=== PATIENT | female | born 1955 | race African-American/Black ===

== ENCOUNTER 2017-06-28 22:31 | Inpatient (IN) | payer MEDICARE, MEDICAID ==
[~2017-06-28] VITALS: Ht 167.6 cm; Wt 73.9 kg
[~2017-06-28 22:31] MED LIST: FURO20TA4 PO; GABA-529 PO; LEVO25TA7 PO; SITA50TA3 PO; TRAM50TA3 PO; TRAZ-129 PO
[2017-06-28] MEDS ORDERED: SODIUM CHLORIDE 0.9% 1,000 ML IV ONE (22:54)
[2017-06-28] MEDS ORDERED: LEVOFLOXACIN 750MG PREMIX 150 ML IV ONE (23:00)
[2017-06-28] MEDS ORDERED: VANCOMYCIN 1 G PREMIX 200 ML IV ONE (23:00)
[2017-06-28 23:43] LABS: BASOPHILS % 0.8 % (0.0-2.0); EOSINOPHILS % 0.1 % (0.0-5.0); HEMATOCRIT. 33.3 % (36.0-48.0); HEMOGLOBIN. 10.7 g/dL (12.0-16.0); LYMPHOCYTES % 12.6 % (20.0-50.0); MEAN CORPUSCULAR HEMOGLOBIN 25.9 pg (28.0-32.0); MEAN CORPUSCULAR VOLUME 80.5 fL (81.0-99.0); MEAN PLATELET VOLUME 9.4 fl (7.4-10.4); MONOCYTES % 5.8 % (2.0-8.0); NEUTROPHILS % 80.7 % (40.0-76.0); RED BLOOD CELL COUNT 4.14 mill/uL (4.2-5.4); RED CELL DISTRIBUTION WIDTH 15.1 % (11.6-14.6)
[2017-06-28 23:50] LABS: CHLORIDE 106 mEq/L (98-107)
[2017-06-28 23:54] LABS: AMMONIA 10 uMol/L (<32)
[2017-06-28 23:57] LABS: ETHANOL BLOOD < 10 mg/dL
[2017-06-28 23:58] LABS: INR 1.1; PROTHROMBIN TIME 11.7 sec (9.4-11.6)
[2017-06-29] VITALS (8 sets, daily range): BP systolic 98–123; BP diastolic 54–73
[2017-06-29 00:01] LABS: CREATINE KINASE 122 IU/L (26-192)
[2017-06-29 00:14] LABS: BG BASE EXCESS 0.6 mmol/L (-2.0-2.0); BG CARBOXYHEMOGLOBIN 0.8 % (0.5-1.5); BG DEOXYHEMOGLOBIN 4.8 % (0.0-5.0); BG FRACTION INSPIRED OXYGEN 21; BG HCO3 ACT 25.2 mmol/L (22.0-26.0); BG METHEMOGLOBIN 0.3 % (0.0-1.5); BG OXYGEN SATURATION 95.1 % (92.0-98.5); BG OXYHEMOGLOBIN 94.1 % (94.0-97.0); BG PCO2 40.3 mmHg (35.0-45.0); BG PH 7.414 (7.350-7.450); BG PO2 76.9 mmHg (75.0-100.0); BG SAMPLE SITE LEFT RADIAL; BG TOTAL HEMOGLOBIN 11.2 g/dL (12.0-18.0); BG VENT MODE ROOM AIR
[2017-06-29 00:37] LABS: PLATELET 213 x1000/uL (130-400)
[2017-06-29 00:56] LABS: CLARITY URINE CLEAR (CLEAR); COLOR URINE YELLOW (YELLOW); KETONES URINE TRACE (NEGATIVE); LEUKOCYTE ESTERASE URINE NEGATIVE (NEGATIVE); NITRITE URINE NEGATIVE (NEGATIVE); OCCULT BLOOD URINE NEGATIVE (NEGATIVE); PH URINE 6.5 (4.5-8.0); PROTEIN URINE TRACE (NEGATIVE); SPECIFIC GRAVITY URINE 1.016 (1.005-1.030); UROBILINOGEN URINE 0.2 E.U./dL (0.2-1.0)
[2017-06-29 01:07] LABS: *AMPHETAMINES SCREEN URINE NEGATIVE (NEGATIVE); *BARBITURATES SCREEN URINE NEGATIVE (NEGATIVE); *BENZODIAZEPINES SCREEN URINE NEGATIVE (NEGATIVE)
[2017-06-29 01:08] LABS: *COCAINE SCREEN URINE NEGATIVE (NEGATIVE); CANNABINOID URINE SCREEN NEGATIVE (NEGATIVE); METHADONE URINE SCREEN NEGATIVE (NEGATIVE); OPIATES URINE SCREEN PRESUMTIVE POSITIVE (NEGATIVE); PHENCYCLIDINE URINE SCREEN NEGATIVE (NEGATIVE)
[2017-06-29] MEDS ORDERED: CLONIDINE 0.1MG TABLET GT PRN (09:00)
[2017-06-29] MEDS ORDERED: ACETAMINOPHEN 325MG TABLET GT PRN (09:00)
[2017-06-29] MEDS: ENOXAPARIN 40MG/0.4ML SYR SUBCUT SCH (09:54)
[2017-06-29] MEDS: LEVOTHYROXINE SODIUM 25MCG TABLET PO SCH (09:54)
[2017-06-29] MEDS: DOCUSATE SODIUM 100MG CAPSULE GT SCH ×2 (09:54→17:59)
[2017-06-29 11:35] LABS: TOTAL IRON BINDING CAPACITY 214 ug/dL (250-450)
[2017-06-29] MEDS: BLOOD SUGAR DIAGNOSTIC STRIP TEST SCH ×3 (11:59→22:11)
[2017-06-29] MEDS ORDERED: DEXTROSE 50% WATER 50ML SYRINGE IV PRN ×2 (12:00→20:00)
[2017-06-29] MEDS: INSULIN LISPRO 100 UNITS/ML SUBCUT SCH ×3 (12:20→22:00)
[2017-06-29] MEDS: IPRATROPIUM/ALBUTEROL 0.5-3(2.5)MG/3ML NEB HHN SCH ×3 (12:55→20:00)
[2017-06-29 16:55] LABS: CREATINE KINASE MB FRACTION 0.8 ng/mL (0.5-3.6)
[2017-06-29 17:00] LABS: VITAMIN B12 SERUM 447 pg/mL (211-911)
[2017-06-29 18:03] LABS: CLARITY URINE CLOUDY (CLEAR); COLOR URINE YELLOW (YELLOW); KETONES URINE NEGATIVE (NEGATIVE); LEUKOCYTE ESTERASE URINE TRACE (NEGATIVE); NITRITE URINE NEGATIVE (NEGATIVE); OCCULT BLOOD URINE TRACE (NEGATIVE); PROTEIN URINE TRACE (NEGATIVE); SPECIFIC GRAVITY URINE 1.015 (1.005-1.030); UROBILINOGEN URINE 0.2 E.U./dL (0.2-1.0)
[2017-06-29 18:50] LABS: *AMPHETAMINES SCREEN URINE NEGATIVE (NEGATIVE); *BARBITURATES SCREEN URINE NEGATIVE (NEGATIVE)
[2017-06-29 18:51] LABS: *BENZODIAZEPINES SCREEN URINE NEGATIVE (NEGATIVE); *COCAINE SCREEN URINE NEGATIVE (NEGATIVE); CANNABINOID URINE SCREEN NEGATIVE (NEGATIVE); METHADONE URINE SCREEN NEGATIVE (NEGATIVE); OPIATES URINE SCREEN PRESUMTIVE POSITIVE (NEGATIVE); PHENCYCLIDINE URINE SCREEN NEGATIVE (NEGATIVE)
[2017-06-29] MEDS: TRAZODONE HCL 50MG TABLET PO SCH (20:38)
[2017-06-29] MEDS ORDERED: ACETAMINOPHEN 325MG TABLET PO PRN (21:00)
[2017-06-29] MEDS: ZOLPIDEM TARTRATE 5MG TABLET PO PRN (22:08)
[2017-06-29] MEDS: SILVER SULFADIAZINE 1% CREAM 25GM TOP SCH (22:37)
[2017-06-29] MEDS: PIPERACILLIN/TAZ 3.375G PREMIX 50 ML IV SCH (23:00)
[2017-06-30] VITALS (13 sets, daily range): BP systolic 94–161; BP diastolic 38–88
[2017-06-30 00:11] LABS: CREATINE KINASE MB FRACTION 0.9 ng/mL (0.5-3.6)
[2017-06-30] MEDS: HYDROMORPHONE HCL/PF 2MG/ML CPJ IV PRN ×2 (02:41→22:26)
[2017-06-30] MEDS: IPRATROPIUM/ALBUTEROL 0.5-3(2.5)MG/3ML NEB HHN SCH ×6 (05:05→20:47)
[2017-06-30] MEDS: PIPERACILLIN/TAZ 3.375G PREMIX 50 ML IV SCH ×4 (06:00→22:26)
[2017-06-30] MEDS: INSULIN LISPRO 100 UNITS/ML SUBCUT SCH ×3 (06:00→21:28)
[2017-06-30] MEDS: BLOOD SUGAR DIAGNOSTIC STRIP TEST SCH ×3 (06:32→21:28)
[2017-06-30] MEDS: LEVOTHYROXINE SODIUM 25MCG TABLET PO SCH (06:56)
[2017-06-30 07:08] LABS: BASOPHILS % 0.2 % (0.0-2.0); EOSINOPHILS % 0.5 % (0.0-5.0); HEMATOCRIT. 34.1 % (36.0-48.0); LYMPHOCYTES % 18.6 % (20.0-50.0); MEAN CORPUSCULAR HEMOGLOBIN 25.9 pg (28.0-32.0); MEAN CORPUSCULAR VOLUME 80.6 fL (81.0-99.0); MEAN PLATELET VOLUME 8.8 fl (7.4-10.4); MONOCYTES % 7.5 % (2.0-8.0); NEUTROPHILS % 73.2 % (40.0-76.0); PLATELET 206 x1000/uL (130-400); RED BLOOD CELL COUNT 4.23 mill/uL (4.2-5.4); RED CELL DISTRIBUTION WIDTH 15.5 % (11.6-14.6)
[2017-06-30 07:51] LABS: CHLORIDE 110 mEq/L (98-107)
[2017-06-30] MEDS: SILVER SULFADIAZINE 1% CREAM 25GM TOP SCH ×2 (09:26→20:17)
[2017-06-30] MEDS: ENOXAPARIN 40MG/0.4ML SYR SUBCUT SCH (09:26)
[2017-06-30] MEDS: DOCUSATE SODIUM 100MG CAPSULE GT SCH ×2 (09:26→18:03)
[2017-06-30] MEDS: TRAZODONE HCL 50MG TABLET PO SCH (20:14)
[2017-06-30] MEDS: ZOLPIDEM TARTRATE 5MG TABLET PO PRN (20:14)
[2017-07-01] VITALS (11 sets, daily range): BP systolic 101–143; BP diastolic 46–76
[2017-07-01] MEDS: IPRATROPIUM/ALBUTEROL 0.5-3(2.5)MG/3ML NEB HHN SCH ×6 (04:00→21:36)
[2017-07-01] MEDS: INSULIN LISPRO 100 UNITS/ML SUBCUT SCH ×3 (05:48→22:00)
[2017-07-01] MEDS: BLOOD SUGAR DIAGNOSTIC STRIP TEST SCH ×3 (05:48→22:00)
[2017-07-01] MEDS: LEVOTHYROXINE SODIUM 25MCG TABLET PO SCH ×2 (05:53→06:05)
[2017-07-01] MEDS: PIPERACILLIN/TAZ 3.375G PREMIX 50 ML IV SCH ×4 (05:53→23:40)
[2017-07-01 07:06] LABS: BASOPHILS % 0.2 % (0.0-2.0); EOSINOPHILS % 1.3 % (0.0-5.0); LYMPHOCYTES % 27.7 % (20.0-50.0); MEAN CORPUSCULAR VOLUME 80.2 fL (81.0-99.0); MEAN PLATELET VOLUME 9.1 fl (7.4-10.4); MONOCYTES % 10.5 % (2.0-8.0); NEUTROPHILS % 60.3 % (40.0-76.0); PLATELET 216 x1000/uL (130-400); RED BLOOD CELL COUNT 4.24 mill/uL (4.2-5.4); RED CELL DISTRIBUTION WIDTH 15.5 % (11.6-14.6)
[2017-07-01 07:17] LABS: CHLORIDE 109 mEq/L (98-107)
[2017-07-01] MEDS: DOCUSATE SODIUM 100MG CAPSULE GT SCH ×2 (09:00→16:17)
[2017-07-01] MEDS ORDERED: DIATR MEGLU/DIATRIZOATE SOLN 30ML ONE (11:19)
[2017-07-01] MEDS ORDERED: LIDOCAINE HCL/PF 1% 10 MG/ML 5ML VIAL ONE (11:20)
[2017-07-01] MEDS ORDERED: SODIUM BICARBONATE 4% (2.4MEQ) 5ML VIAL IV ONE (11:21)
[2017-07-01] MEDS ORDERED: LIDOCAINE HCL 2% JELLY 5ML ONE (11:21)
[2017-07-01] MEDS: MAGNESIUM/ALUMINUM HYDROXIDE/SIMETHICONE 30ML UDC PO PRN ×2 (13:09→18:08)
[2017-07-01] MEDS: ENOXAPARIN 40MG/0.4ML SYR SUBCUT SCH (14:53)
[2017-07-01] MEDS: SILVER SULFADIAZINE 1% CREAM 25GM TOP SCH ×2 (14:54→20:49)
[2017-07-01] MEDS: HYDROMORPHONE HCL/PF 2MG/ML CPJ IV PRN (16:29)
[2017-07-01] MEDS: ONDANSETRON HCL 4MG/2ML VIAL IV PRN ×2 (18:32→23:40)
[2017-07-01] MEDS: TRAZODONE HCL 50MG TABLET PO SCH (20:49)
[2017-07-02] VITALS (8 sets, daily range): BP systolic 95–115; BP diastolic 51–66
[2017-07-02] MEDS: HYDROMORPHONE HCL/PF 2MG/ML CPJ IV PRN (00:11)
[2017-07-02] MEDS: IPRATROPIUM/ALBUTEROL 0.5-3(2.5)MG/3ML NEB HHN SCH ×3 (00:52→11:22)
[2017-07-02] MEDS: ZOLPIDEM TARTRATE 5MG TABLET PO PRN (01:47)
[2017-07-02] MEDS: PIPERACILLIN/TAZ 3.375G PREMIX 50 ML IV SCH ×2 (05:39→11:11)
[2017-07-02] MEDS: INSULIN LISPRO 100 UNITS/ML SUBCUT SCH (06:00)
[2017-07-02] MEDS: BLOOD SUGAR DIAGNOSTIC STRIP TEST SCH (06:00)
[2017-07-02] MEDS: LEVOTHYROXINE SODIUM 25MCG TABLET PO SCH (06:09)
[2017-07-02] MEDS: ENOXAPARIN 40MG/0.4ML SYR SUBCUT SCH (08:15)
[2017-07-02] MEDS: DOCUSATE SODIUM 100MG CAPSULE GT SCH (08:15)
[2017-07-02] MEDS: SILVER SULFADIAZINE 1% CREAM 25GM TOP SCH (08:17)
[2017-07-02] MEDS: ONDANSETRON HCL 4MG/2ML VIAL IV PRN (13:06)
== END 2017-07-02 13:05 | disposition home health service (06) | DRG 871 ==
LOC: ER 22:31 → 3WST 06-29 04:00 → ENRESERV 06-29 04:11 → EDBEDREQ 06-29 04:26 → 3WST 06-29 07:43
PROVIDERS: ADMIT Internal Medicine Geriatric Medicine; ATTEND Internal Medicine Geriatric Medicine
DX: A41.9 Sepsis, unspecified organism (principal); G92 Toxic encephalopathy; E44.0 Moderate protein-calorie malnutrition; J18.9 Pneumonia, unspecified organism; E11.42 Type 2 diabetes mellitus with diabetic polyneuropathy; E11.69 Type 2 diabetes mellitus with other specified complication; D50.9 Iron deficiency anemia, unspecified; F15.10 Other stimulant abuse, uncomplicated; G89.29 Other chronic pain; B95.2 Enterococcus as the cause of diseases classified elsewhere; Z16.21 Resistance to vancomycin; E03.9 Hypothyroidism, unspecified; I10 Essential (primary) hypertension; N20.0 Calculus of kidney; Z91.81 History of falling; Z68.26 Body mass index [BMI] 26.0-26.9, adult; Z79.899 Other long term (current) drug therapy
CPT/HCPCS: 36415; 36598; 36600; 49450; 51702; 70450; 71045; 74176; 80048; 80053; 80305; 81003; 82140; 82270; 82375; 82550; 82553; 82607; 82805; 82962; 83540; 83550; 83605; 83690; 83721; 83880; 84443; 84484; 85025; 85610; 86850; 86900; 87040; 87086; 87804; 93005; 93306; 93970; 94640; 96365; 96366; 96367; 99291; G0482; J1170; J1650; J1956; J2405; J2543; J3370; J3490; J7030; J7040; J7050; J7620; Q9963

== ENCOUNTER 2019-02-24 14:37 | Inpatient (IN) | payer MEDICARE, MEDICAID ==
[~2019-02-24] VITALS: Ht 160 cm; Wt 64.0 kg
[~2019-02-24 14:37] MED LIST changes: -TRAZ-129 PO; +TRAZ-251 PO
[2019-02-24] MEDS ORDERED: ONDANSETRON HCL 4MG/2ML INJ IV STA (15:02)
[2019-02-24] MEDS ORDERED: SODIUM CHLORIDE 0.9% 1,000 ML IV ONE (15:02)
[2019-02-24] MEDS ORDERED: MORPHINE SULFATE 4 MG/ML CPJ (NOT FOR IM USE) IV STA (15:02)
[2019-02-24 16:04] LABS: CHLORIDE 108 mEq/L (98-107)
[2019-02-24 16:06] LABS: INR 1.1; PROTHROMBIN TIME 11.2 sec (9.6-11.0)
[2019-02-24 16:08] LABS: ETHANOL BLOOD < 10 mg/dL
[2019-02-24 16:24] LABS: BASOPHILS % 0.2 % (0.0-2.0); HEMATOCRIT. 42.9 % (36.0-48.0); HEMOGLOBIN. 13.7 g/dL (12.0-16.0); LYMPHOCYTES % 7.4 % (20.0-50.0); MEAN CORPUSCULAR HEMOGLOBIN 26.2 pg (28.0-32.0); MEAN CORPUSCULAR VOLUME 82.2 fL (81.0-99.0); MEAN PLATELET VOLUME 9.1 fl (7.4-10.4); MONOCYTES % 3.9 % (2.0-8.0); NEUTROPHILS % 88.5 % (40.0-76.0); PLATELET 329 x1000/uL (130-400); RED BLOOD CELL COUNT 5.21 mill/uL (4.2-5.4); RED CELL DISTRIBUTION WIDTH 15.9 % (11.6-14.6)
[2019-02-24] MEDS ORDERED: METRONIDAZOLE 500 MG PREMIX 100 ML IV ONE (16:30)
[2019-02-24] MEDS ORDERED: CEFTRIAXONE 1 G PREMIX 50 ML IV ONE (16:30)
[2019-02-24] MEDS ORDERED: MORPHINE SULFATE 4 MG/ML CPJ (NOT FOR IM USE) IV NR (20:15)
[2019-02-24] MEDS ORDERED: ONDANSETRON HCL 4MG/2ML INJ IV NR (20:15)
[2019-02-24] MEDS ORDERED: ACETAMINOPHEN 325MG TABLET PO PRN (21:45)
[2019-02-24] MEDS ORDERED: DOCUSATE SODIUM 100MG CAPSULE PO PRN (21:45)
[2019-02-24] MEDS ORDERED: CLONIDINE 0.1MG TABLET PO PRN (21:45)
[2019-02-24] MEDS ORDERED: IPRATROPIUM/ALBUTEROL 0.5-3(2.5)MG/3ML NEB NEB PRN (21:45)
[2019-02-24] MEDS ORDERED: MAGNESIUM/ALUMINUM HYDROXIDE/SIMETHICONE 30ML UDC PO PRN (21:45)
[2019-02-24 23:21] LABS: CLARITY URINE CLEAR (CLEAR); COLOR URINE YELLOW (YELLOW); KETONES URINE 4+ (NEGATIVE); LEUKOCYTE ESTERASE URINE NEGATIVE (NEGATIVE); NITRITE URINE NEGATIVE (NEGATIVE); OCCULT BLOOD URINE NEGATIVE (NEGATIVE); PROTEIN URINE 1+ (NEGATIVE); UROBILINOGEN URINE 0.2 E.U./dL (0.2-1.0)
[2019-02-24 23:32] LABS: *AMPHETAMINES SCREEN URINE NEGATIVE (NEGATIVE); *BARBITURATES SCREEN URINE NEGATIVE (NEGATIVE); *BENZODIAZEPINES SCREEN URINE NEGATIVE (NEGATIVE); *COCAINE SCREEN URINE NEGATIVE (NEGATIVE)
[2019-02-24 23:33] LABS: CANNABINOID URINE SCREEN NEGATIVE (NEGATIVE); METHADONE URINE SCREEN NEGATIVE (NEGATIVE); OPIATES URINE SCREEN PRESUMTIVE POSITIVE (NEGATIVE); PHENCYCLIDINE URINE SCREEN NEGATIVE (NEGATIVE)
[2019-02-25 01:28] LABS: BG BASE EXCESS -9.1 mmol/L (-2.0-2.0); BG CARBOXYHEMOGLOBIN 0.3 % (0.5-1.5); BG DEOXYHEMOGLOBIN 2.8 % (0.0-5.0); BG FRACTION INSPIRED OXYGEN 21; BG METHEMOGLOBIN 0.2 % (0.0-1.5); BG OXYGEN SATURATION 97.2 % (92.0-98.5); BG OXYHEMOGLOBIN 96.7 % (94.0-97.0); BG PCO2 27.5 mmHg (35.0-45.0); BG PH 7.355 (7.350-7.450); BG PO2 105.3 mmHg (75.0-100.0); BG SAMPLE SITE RIGHT BRACHIAL; BG TOTAL HEMOGLOBIN 11.3 g/dL (12.0-18.0); BG VENT MODE ROOM AIR
[2019-02-25 01:33] LABS: CHLORIDE 114 mEq/L (98-107)
[2019-02-25 01:41] LABS: CREATINE KINASE 351 IU/L (26-192)
[2019-02-25 01:43] LABS: CREATINE KINASE MB FRACTION 3.5 ng/mL (0.5-3.6)
[2019-02-25] MEDS: SODIUM CHLORIDE 0.9% 1,000 ML IV SCH ×3 (03:30→16:18)
[2019-02-25] MEDS ORDERED: PIPERACILLIN/TAZ 3.375G PREMIX 50 ML IV NR (03:30)
[2019-02-25] MEDS ORDERED: MORPHINE SULFATE 4 MG/ML CPJ (NOT FOR IM USE) IV NR (05:15)
[2019-02-25 10:30] VITALS: BP 121/56
[2019-02-25 11:15] VITALS: BP 121/56
[2019-02-25 11:58] LABS: BASOPHILS % 0.6 % (0.0-2.0); EOSINOPHILS % 0.1 % (0.0-5.0); HEMATOCRIT. 39.2 % (36.0-48.0); HEMOGLOBIN. 12.1 g/dL (12.0-16.0); LYMPHOCYTES % 7.4 % (20.0-50.0); MEAN CORPUSCULAR HEMOGLOBIN 25.7 pg (28.0-32.0); MEAN CORPUSCULAR VOLUME 83.3 fL (81.0-99.0); MEAN PLATELET VOLUME 8.9 fl (7.4-10.4); MONOCYTES % 8.6 % (2.0-8.0); NEUTROPHILS % 83.3 % (40.0-76.0); PLATELET 221 x1000/uL (130-400); RED CELL DISTRIBUTION WIDTH 15.9 % (11.6-14.6)
[2019-02-25 12:22] LABS: LDL CHOLESTEROL 32 mg/dL (5-100)
[2019-02-25 12:23] LABS: CREATINE KINASE 192 IU/L (26-192); CREATINE KINASE MB FRACTION 2.4 ng/mL (0.5-3.6)
[2019-02-25 12:25] LABS: HDL CHOLESTEROL 69 mg/dL (40-59)
[2019-02-25] MEDS: PIPERACILLIN/TAZOBACTAM 3.375 G in DEXT 5% WATER 100 ML IV SCH ×2 (12:51→17:30)
[2019-02-25] MEDS: ENOXAPARIN 40MG/0.4ML SYR SUBCUT SCH (12:51)
[2019-02-25] MEDS ORDERED: PIPERACILLIN/TAZ 3.375G PREMIX 50 ML IV SCH (14:00)
[2019-02-25] MEDS: MORPHINE SULFATE 2 MG/ML CPJ (NOT FOR IM USE) IV PRN (17:31)
[2019-02-25 20:00] VITALS: BP 128/64
[2019-02-25] MEDS ORDERED: DEXTROSE 50% WATER 50ML SYRINGE IV PRN (20:30)
[2019-02-25] MEDS: INSULIN LISPRO 100 UNITS/ML SUBCUT SCH (21:00)
[2019-02-25] MEDS: BLOOD SUGAR DIAGNOSTIC STRIP TEST SCH (21:33)
[2019-02-25] MEDS ORDERED: BISACODYL 10MG SUPP PR NR (22:30)
[2019-02-26] VITALS: BP 115/70
[2019-02-26] MEDS: PIPERACILLIN/TAZOBACTAM 3.375 G in DEXT 5% WATER 100 ML IV SCH ×5 (00:52→23:30)
[2019-02-26 04:00] VITALS: BP 112/55
[2019-02-26] MEDS: BLOOD SUGAR DIAGNOSTIC STRIP TEST SCH ×4 (06:11→21:39)
[2019-02-26] MEDS: MORPHINE SULFATE 2 MG/ML CPJ (NOT FOR IM USE) IV PRN ×2 (06:15→13:16)
[2019-02-26] MEDS: LEVOTHYROXINE SODIUM 25MCG TABLET PO SCH (06:15)
[2019-02-26 07:12] LABS: CHLORIDE 114 mEq/L (98-107)
[2019-02-26 07:16] LABS: HEMATOCRIT. 32.9 % (36.0-48.0); HEMOGLOBIN. 10.4 g/dL (12.0-16.0); MEAN CORPUSCULAR HEMOGLOBIN 25.9 pg (28.0-32.0); MEAN CORPUSCULAR VOLUME 82.2 fL (81.0-99.0); MEAN PLATELET VOLUME 9.2 fl (7.4-10.4); PLATELET 207 x1000/uL (130-400); RED BLOOD CELL COUNT 4.01 mill/uL (4.2-5.4); RED CELL DISTRIBUTION WIDTH 15.7 % (11.6-14.6)
[2019-02-26] MEDS: INSULIN LISPRO 100 UNITS/ML SUBCUT SCH ×4 (07:50→21:00)
[2019-02-26 08:24] VITALS: BP 140/62
[2019-02-26] MEDS: FUROSEMIDE 20MG TABLET PO SCH (08:24)
[2019-02-26] MEDS: GABAPENTIN 100MG CAPSULE PO SCH ×3 (08:25→17:00)
[2019-02-26] MEDS: ENOXAPARIN 40MG/0.4ML SYR SUBCUT SCH (08:49)
[2019-02-26] MEDS ORDERED: POTASSIUM CHLORIDE 20MEQ/PACKET PO NR (12:00)
[2019-02-26] MEDS: SODIUM CHLORIDE 0.9% 1,000 ML IV SCH (12:12)
[2019-02-26 12:40] VITALS: BP 131/70
[2019-02-26 13:13] LABS: NUCLEATED RED BLOOD CELLS 1 /100 WBC; PLATELET ESTIMATE NORMAL
[2019-02-26 16:40] VITALS: BP 158/70
[2019-02-26] MEDS ORDERED: DIATR MEGLU/DIATRIZOATE SOLN 30ML ONE (17:27)
[2019-02-26 20:00] VITALS: BP 123/63
[2019-02-26] MEDS: TRAZODONE HCL 50MG TABLET PO SCH (21:39)
[2019-02-26] MEDS: TRAMADOL 50MG TABLET PO PRN (21:39)
[2019-02-27] VITALS: BP 113/51
[2019-02-27 04:00] VITALS: BP 138/72
[2019-02-27] MEDS: LEVOTHYROXINE SODIUM 25MCG TABLET PO SCH (06:28)
[2019-02-27] MEDS: PIPERACILLIN/TAZOBACTAM 3.375 G in DEXT 5% WATER 100 ML IV SCH ×3 (06:28→18:40)
[2019-02-27] MEDS: BLOOD SUGAR DIAGNOSTIC STRIP TEST SCH ×4 (06:29→21:00)
[2019-02-27] MEDS: INSULIN LISPRO 100 UNITS/ML SUBCUT SCH ×4 (07:50→21:00)
[2019-02-27] MEDS: SODIUM CHLORIDE 0.9% 1,000 ML IV SCH (08:09)
[2019-02-27 08:34] VITALS: BP 139/68
[2019-02-27] MEDS: FUROSEMIDE 20MG TABLET PO SCH (09:00)
[2019-02-27 09:34] LABS: CHLORIDE 116 mEq/L (98-107)
[2019-02-27] MEDS: GABAPENTIN 100MG CAPSULE PO SCH ×3 (10:27→18:34)
[2019-02-27] MEDS: ENOXAPARIN 40MG/0.4ML SYR SUBCUT SCH (10:27)
[2019-02-27] MEDS: ONDANSETRON HCL 4MG/2ML INJ IV PRN (11:11)
[2019-02-27] MEDS: MORPHINE SULFATE 2 MG/ML CPJ (NOT FOR IM USE) IV PRN ×2 (11:12→18:30)
[2019-02-27 12:51] VITALS: BP 121/60
[2019-02-27 16:22] VITALS: BP 107/49
[2019-02-27 20:00] VITALS: BP 113/53
[2019-02-27] MEDS: TRAZODONE HCL 50MG TABLET PO SCH (21:20)
[2019-02-28] VITALS: BP 115/59
[2019-02-28] MEDS: PIPERACILLIN/TAZOBACTAM 3.375 G in DEXT 5% WATER 100 ML IV SCH ×4 (00:17→18:06)
[2019-02-28] MEDS: MORPHINE SULFATE 2 MG/ML CPJ (NOT FOR IM USE) IV PRN ×5 (03:16→20:13)
[2019-02-28 04:00] VITALS: BP 130/73
[2019-02-28] MEDS: SODIUM CHLORIDE 0.9% 1,000 ML IV SCH (05:33)
[2019-02-28] MEDS: LEVOTHYROXINE SODIUM 25MCG TABLET PO SCH (06:23)
[2019-02-28 06:55] LABS: BASOPHILS % 0.3 % (0.0-2.0); EOSINOPHILS % 0.2 % (0.0-5.0); HEMOGLOBIN. 11.7 g/dL (12.0-16.0); LYMPHOCYTES % 21.2 % (20.0-50.0); MEAN CORPUSCULAR HEMOGLOBIN 26.1 pg (28.0-32.0); MEAN CORPUSCULAR VOLUME 82.8 fL (81.0-99.0); MEAN PLATELET VOLUME 9.1 fl (7.4-10.4); MONOCYTES % 6.4 % (2.0-8.0); NEUTROPHILS % 71.9 % (40.0-76.0); PLATELET 183 x1000/uL (130-400); RED BLOOD CELL COUNT 4.46 mill/uL (4.2-5.4); RED CELL DISTRIBUTION WIDTH 15.5 % (11.6-14.6)
[2019-02-28] MEDS: BLOOD SUGAR DIAGNOSTIC STRIP TEST SCH ×4 (07:03→20:27)
[2019-02-28 07:14] LABS: CHLORIDE 112 mEq/L (98-107)
[2019-02-28] MEDS: INSULIN LISPRO 100 UNITS/ML SUBCUT SCH ×4 (07:59→20:27)
[2019-02-28] MEDS: ENOXAPARIN 40MG/0.4ML SYR SUBCUT SCH (08:00)
[2019-02-28] MEDS: FUROSEMIDE 20MG TABLET PO SCH (08:01)
[2019-02-28] MEDS: GABAPENTIN 100MG CAPSULE PO SCH ×3 (08:01→17:48)
[2019-02-28 08:38] VITALS: BP 129/69
[2019-02-28 12:00] VITALS: BP 114/88
[2019-02-28 12:27] VITALS: BP 116/38
[2019-02-28 16:10] VITALS: BP 114/88
[2019-02-28] MEDS: TRAZODONE HCL 50MG TABLET PO SCH (20:13)
[2019-02-28] MEDS: TRAMADOL 50MG TABLET PO PRN (22:03)
[2019-03-01 00:09] VITALS: BP 127/66
[2019-03-01] MEDS: MORPHINE SULFATE 2 MG/ML CPJ (NOT FOR IM USE) IV PRN ×3 (00:14→08:42)
[2019-03-01] MEDS: PIPERACILLIN/TAZOBACTAM 3.375 G in DEXT 5% WATER 100 ML IV SCH ×4 (00:22→18:14)
[2019-03-01] MEDS: SODIUM CHLORIDE 0.9% 1,000 ML IV SCH ×2 (00:22→19:02)
[2019-03-01 04:00] VITALS: BP 127/70
[2019-03-01] MEDS: LEVOTHYROXINE SODIUM 25MCG TABLET PO SCH (06:02)
[2019-03-01] MEDS: ONDANSETRON HCL 4MG/2ML INJ IV PRN (06:02)
[2019-03-01] MEDS: BLOOD SUGAR DIAGNOSTIC STRIP TEST SCH ×4 (06:21→20:35)
[2019-03-01] MEDS: INSULIN LISPRO 100 UNITS/ML SUBCUT SCH ×4 (06:28→20:35)
[2019-03-01] MEDS: TRAMADOL 50MG TABLET PO PRN (06:33)
[2019-03-01 07:59] VITALS: BP 104/65
[2019-03-01] MEDS: GABAPENTIN 100MG CAPSULE PO SCH ×3 (08:41→18:14)
[2019-03-01] MEDS: FUROSEMIDE 20MG TABLET PO SCH (08:41)
[2019-03-01] MEDS: ENOXAPARIN 40MG/0.4ML SYR SUBCUT SCH (08:41)
[2019-03-01 09:42] LABS: BASOPHILS % 0.6 % (0.0-2.0); EOSINOPHILS % 0.4 % (0.0-5.0); HEMATOCRIT. 33.9 % (36.0-48.0); HEMOGLOBIN. 10.8 g/dL (12.0-16.0); LYMPHOCYTES % 21.2 % (20.0-50.0); MEAN CORPUSCULAR VOLUME 81.5 fL (81.0-99.0); MEAN PLATELET VOLUME 9.1 fl (7.4-10.4); MONOCYTES % 6.9 % (2.0-8.0); NEUTROPHILS % 70.9 % (40.0-76.0); PLATELET 194 x1000/uL (130-400); RED BLOOD CELL COUNT 4.15 mill/uL (4.2-5.4); RED CELL DISTRIBUTION WIDTH 15.2 % (11.6-14.6)
[2019-03-01 09:45] LABS: CHLORIDE 109 mEq/L (98-107)
[2019-03-01] MEDS ORDERED: DOCUSATE SODIUM 250MG CAPSULE PO SCH (11:00)
[2019-03-01 12:03] VITALS: BP 103/57
[2019-03-01] MEDS: METOCLOPRAMIDE 10MG/10 ML UDC PO SCH ×3 (12:12→21:15)
[2019-03-01 16:05] VITALS: BP 103/59
[2019-03-01] MEDS: MORPHINE SULFATE 4 MG/ML CPJ (NOT FOR IM USE) IV PRN ×2 (16:59→21:21)
[2019-03-01] MEDS: DOCUSATE SODIUM SUGAR FREE 100MG/10ML UDC NG SCH (17:00)
[2019-03-01] MEDS ORDERED: MORPHINE SULFATE 2 MG/ML CPJ (NOT FOR IM USE) IV PRN (17:45)
[2019-03-01] MEDS ORDERED: POTASSIUM CHLORIDE 20MEQ/PACKET GT NR (17:48)
[2019-03-01 20:00] VITALS: BP 109/64
[2019-03-01] MEDS: TRAZODONE HCL 50MG TABLET PO SCH (21:15)
[2019-03-02] VITALS (9 sets, daily range): BP systolic 78–123; BP diastolic 44–66
[2019-03-02] MEDS: PIPERACILLIN/TAZOBACTAM 3.375 G in DEXT 5% WATER 100 ML IV SCH ×2 (00:39→06:07)
[2019-03-02] MEDS: BLOOD SUGAR DIAGNOSTIC STRIP TEST SCH ×3 (06:24→17:30)
[2019-03-02] MEDS: LEVOTHYROXINE SODIUM 25MCG TABLET PO SCH (06:24)
[2019-03-02] MEDS: MORPHINE SULFATE 4 MG/ML CPJ (NOT FOR IM USE) IV PRN ×2 (06:27→10:49)
[2019-03-02] MEDS: INSULIN LISPRO 100 UNITS/ML SUBCUT SCH ×2 (07:40→12:50)
[2019-03-02 08:04] LABS: BASOPHILS % 0.3 % (0.0-2.0); EOSINOPHILS % 0.5 % (0.0-5.0); HEMATOCRIT. 33.9 % (36.0-48.0); LYMPHOCYTES % 20.9 % (20.0-50.0); MEAN CORPUSCULAR HEMOGLOBIN 26.6 pg (28.0-32.0); MEAN CORPUSCULAR VOLUME 82.3 fL (81.0-99.0); MEAN PLATELET VOLUME 9.9 fl (7.4-10.4); MONOCYTES % 7.4 % (2.0-8.0); NEUTROPHILS % 70.9 % (40.0-76.0); PLATELET 207 x1000/uL (130-400); RED BLOOD CELL COUNT 4.12 mill/uL (4.2-5.4); RED CELL DISTRIBUTION WIDTH 15.2 % (11.6-14.6)
[2019-03-02 08:21] LABS: CHLORIDE 104 mEq/L (98-107)
[2019-03-02] MEDS: GABAPENTIN 100MG CAPSULE PO SCH ×4 (09:00→17:00)
[2019-03-02] MEDS: ENOXAPARIN 40MG/0.4ML SYR SUBCUT SCH (09:00)
[2019-03-02] MEDS: FUROSEMIDE 20MG TABLET PO SCH ×3 (09:00→09:48)
[2019-03-02] MEDS: METOCLOPRAMIDE 10MG/10 ML UDC PO SCH ×5 (09:00→17:00)
[2019-03-02] MEDS: DOCUSATE SODIUM SUGAR FREE 100MG/10ML UDC NG SCH ×2 (09:00→17:00)
[2019-03-02] MEDS ORDERED: POTASSIUM CHLORIDE 20MEQ/PACKET PO NR (13:15)
[2019-03-02] MEDS ORDERED: METO-293 MT (13:29)
[2019-03-02] MEDS ORDERED: FURO20TA4 PO (13:29)
[2019-03-02] MEDS: TRAMADOL 50MG TABLET PO PRN (13:39)
[2019-03-02] MEDS ORDERED: HYDROCODONE/ACETAMINOPHEN 5/325MG TABLET PO PRN (13:45)
[2019-03-02] MEDS: SODIUM CHLORIDE 0.9% 1,000 ML IV SCH (16:12)
[2019-03-02] MEDS: ONDANSETRON HCL 4MG/2ML INJ IV PRN (17:44)
== END 2019-03-02 19:10 | DRG 377 ==
LOC: ER 14:37 → EDBEDREQ 15:44 → EDBEDREQTM 19:29 → EDBEDREQ 19:29 → EDBEDREQSVC 19:29 → ENRESERV 20:00 → EDBEDREQSVC 22:00 → EDBEDREQTM 22:00 → ENRESERV 23:36 → CANRESERV 23:36 → ENRESERV 02-25 07:43 → 6WST 02-25 09:00
PROVIDERS: ADMIT Internal Medicine; ATTEND Internal Medicine
DX: K92.0 Hematemesis (principal); G93.41 Metabolic encephalopathy; K94.23 Gastrostomy malfunction; N39.0 Urinary tract infection, site not specified; E44.0 Moderate protein-calorie malnutrition; K59.00 Constipation, unspecified; E11.9 Type 2 diabetes mellitus without complications; E03.9 Hypothyroidism, unspecified; D64.9 Anemia, unspecified; E86.0 Dehydration; D72.829 Elevated white blood cell count, unspecified; R82.71 Bacteriuria; Y83.3 Surgical operation with formation of external stoma as the cause of abnormal reaction of the patient, or of later complication, without mention of misadventure at the time of the procedure; Y92.89 Other specified places as the place of occurrence of the external cause; Z85.01 Personal history of malignant neoplasm of esophagus; Z79.899 Other long term (current) drug therapy; Z68.25 Body mass index [BMI] 25.0-25.9, adult
CPT/HCPCS: 36415; 36600; 71045; 74018; 74176; 80048; 80053; 80061; 80305; 80320; 81003; 82140; 82270; 82375; 82550; 82553; 82805; 82962; 83735; 83880; 84134; 84443; 84484; 85025; 86850; 86900; 93005; 99285; A6261; C1893; J0696; J1650; J1815; J2270; J2405; J2543; J3490; J7030; J7060; J8597; Q9963; A4315; G0480

== ENCOUNTER 2019-03-05 04:23 | Inpatient (IN) | payer MEDICARE, MEDICAID ==
[~2019-03-05] VITALS: Ht 172.7 cm; Wt 68.0 kg
[2019-03-05 02:28] VITALS: BP 146/67
[~2019-03-05 04:23] MED LIST changes: +METO-293 MT; -TRAM50TA3 PO
[2019-03-05] MEDS ORDERED: ASPIRIN 81MG TABLET PO ONE (04:45)
[2019-03-05] MEDS ORDERED: MORPHINE SULFATE 4 MG/ML CPJ (NOT FOR IM USE) IV STA (04:45)
[2019-03-05] MEDS ORDERED: ONDANSETRON HCL 4MG/2ML INJ IV STA (04:45)
[2019-03-05] MEDS ORDERED: SODIUM CHLORIDE 0.9% 1,000 ML IV ONE (04:45)
[2019-03-05] MEDS ORDERED: NITROGLYCERIN OINT 1GM/INCH UDPKT TD ONE (04:45)
[2019-03-05 05:09] LABS: BASOPHILS % 0.5 % (0.0-2.0); HEMATOCRIT. 32.9 % (36.0-48.0); HEMOGLOBIN. 10.5 g/dL (12.0-16.0); LYMPHOCYTES % 8.5 % (20.0-50.0); MEAN CORPUSCULAR HEMOGLOBIN 26.4 pg (28.0-32.0); MEAN CORPUSCULAR VOLUME 82.6 fL (81.0-99.0); MEAN PLATELET VOLUME 9.2 fl (7.4-10.4); MONOCYTES % 7.4 % (2.0-8.0); NEUTROPHILS % 83.6 % (40.0-76.0); PLATELET 350 x1000/uL (130-400); RED BLOOD CELL COUNT 3.98 mill/uL (4.2-5.4); RED CELL DISTRIBUTION WIDTH 15.4 % (11.6-14.6)
[2019-03-05 05:13] LABS: CHLORIDE 106 mEq/L (98-107)
[2019-03-05] MEDS ORDERED: IOHEXOL-350 100 ML BOTTLE ONE (09:14)
[2019-03-05] MEDS ORDERED: DOCUSATE SODIUM 100MG CAPSULE PO PRN (10:30)
[2019-03-05] MEDS ORDERED: GUAIFENESIN 200MG/10ML SUGAR FREE UDC PO PRN (10:30)
[2019-03-05] MEDS ORDERED: ACETAMINOPHEN 325MG TABLET PO PRN (10:30)
[2019-03-05] MEDS ORDERED: ENOXAPARIN 40MG/0.4ML SYR SUBCUT SCH (10:30)
[2019-03-05] MEDS ORDERED: IPRATROPIUM/ALBUTEROL 0.5-3(2.5)MG/3ML NEB NEB PRN (10:30)
[2019-03-05] MEDS ORDERED: CLONIDINE 0.1MG TABLET PO PRN (10:30)
[2019-03-05] MEDS ORDERED: NA PHOS,M-B/NA PHOS,DI-BA ENEMA 118ML PR PRN (10:30)
[2019-03-05] MEDS ORDERED: DIPHENHYDRAMINE 50MG/ML VIAL IV PRN (10:30)
[2019-03-05] MEDS ORDERED: MAGNESIUM/ALUMINUM HYDROXIDE/SIMETHICONE 30ML UDC PO PRN (10:30)
[2019-03-05] MEDS ORDERED: ONDANSETRON HCL 4MG/2ML INJ IV PRN (10:30)
[2019-03-05] MEDS: MORPHINE SULFATE 2 MG/ML CPJ (NOT FOR IM USE) IV PRN ×2 (13:03→21:08)
[2019-03-05 16:06] LABS: CHLORIDE 108 mEq/L (98-107)
[2019-03-05 16:15] LABS: CREATINE KINASE 17 IU/L (26-192)
[2019-03-05 16:17] LABS: CREATINE KINASE MB FRACTION < 1.0 ng/mL (0.5-3.6)
[2019-03-05] MEDS: HYDROCODONE/ACETAMINOPHEN 5/325MG TABLET PO PRN (16:21)
[2019-03-05] MEDS ORDERED: LEVOFLOXACIN 500MG PREMIX 100 ML IV SCH (18:30)
[2019-03-05 20:00] VITALS: BP 114/65
[2019-03-05] MEDS: ENOXAPARIN 40MG/0.4ML SYR SUBCUT SCH (21:35)
[2019-03-05] MEDS ORDERED: ZOLPIDEM TARTRATE 5MG TABLET PO PRN (22:45)
[2019-03-05] MEDS ORDERED: DEXTROSE 50% WATER 50ML SYRINGE IV PRN (22:45)
[2019-03-06] VITALS: BP 108/54
[2019-03-06 00:13] LABS: CREATINE KINASE 18 IU/L (26-192)
[2019-03-06 00:14] LABS: CREATINE KINASE MB FRACTION < 1.0 ng/mL (0.5-3.6)
[2019-03-06] MEDS: HYDROCODONE/ACETAMINOPHEN 5/325MG TABLET PO PRN ×3 (00:36→12:48)
[2019-03-06 04:00] VITALS: BP 117/51
[2019-03-06] MEDS: MORPHINE SULFATE 2 MG/ML CPJ (NOT FOR IM USE) IV PRN ×4 (04:27→20:19)
[2019-03-06] MEDS: BLOOD SUGAR DIAGNOSTIC STRIP TEST SCH ×4 (07:40→20:47)
[2019-03-06 08:00] VITALS: BP 95/59
[2019-03-06] MEDS: INSULIN LISPRO 100 UNITS/ML SUBCUT SCH ×4 (08:10→20:48)
[2019-03-06] MEDS: ASPIRIN 81MG EC TABLET PO SCH (08:42)
[2019-03-06 11:33] LABS: HEMOGLOBIN. 9.5 g/dL (12.0-16.0); MEAN CORPUSCULAR HEMOGLOBIN 26.6 pg (28.0-32.0); MEAN CORPUSCULAR VOLUME 81.6 fL (81.0-99.0); MEAN PLATELET VOLUME 9.3 fl (7.4-10.4); PLATELET 538 x1000/uL (130-400); RED BLOOD CELL COUNT 3.55 mill/uL (4.2-5.4); RED CELL DISTRIBUTION WIDTH 15.7 % (11.6-14.6)
[2019-03-06 11:54] LABS: CHLORIDE 105 mEq/L (98-107)
[2019-03-06 12:00] VITALS: BP 90/54
[2019-03-06 12:06] LABS: LDL CHOLESTEROL 47 mg/dL (5-100)
[2019-03-06 12:07] LABS: CREATINE KINASE 21 IU/L (26-192); CREATINE KINASE MB FRACTION < 1.0 ng/mL (0.5-3.6); HDL CHOLESTEROL 58 mg/dL (40-59); T4 FREE 1.09 ng/dL (0.76-1.46)
[2019-03-06 12:22] LABS: PLATELET ESTIMATE INCREASED
[2019-03-06] MEDS: NYSTATIN POWDER 15GM TOP SCH ×2 (13:00→17:56)
[2019-03-06 16:12] VITALS: BP 135/67
[2019-03-06] MEDS: LORAZEPAM 2MG/ML CPJ IV PRN (17:36)
[2019-03-06] MEDS: SODIUM CHLORIDE 0.45% 1,000 ML IV SCH ×2 (17:36→17:58)
[2019-03-06] MEDS: ENOXAPARIN 40MG/0.4ML SYR SUBCUT SCH (18:00)
[2019-03-06] MEDS: LEVOFLOXACIN 500MG PREMIX 100 ML IV SCH (18:57)
[2019-03-06 20:00] VITALS: BP 99/51
[2019-03-07] VITALS: BP 113/57
[2019-03-07] MEDS: MORPHINE SULFATE 2 MG/ML CPJ (NOT FOR IM USE) IV PRN ×5 (00:30→22:44)
[2019-03-07] MEDS: LORAZEPAM 2MG/ML CPJ IV PRN (03:40)
[2019-03-07 04:00] VITALS: BP 95/54
[2019-03-07] MEDS: BLOOD SUGAR DIAGNOSTIC STRIP TEST SCH ×4 (06:47→21:00)
[2019-03-07 07:14] LABS: HEMATOCRIT. 28.7 % (36.0-48.0); HEMOGLOBIN. 9.2 g/dL (12.0-16.0); MEAN CORPUSCULAR HEMOGLOBIN 26.5 pg (28.0-32.0); MEAN CORPUSCULAR VOLUME 82.4 fL (81.0-99.0); MEAN PLATELET VOLUME 9.2 fl (7.4-10.4); PLATELET 449 x1000/uL (130-400); RED BLOOD CELL COUNT 3.48 mill/uL (4.2-5.4); RED CELL DISTRIBUTION WIDTH 15.5 % (11.6-14.6)
[2019-03-07 07:22] LABS: CHLORIDE 104 mEq/L (98-107)
[2019-03-07 08:00] VITALS: BP 112/58
[2019-03-07] MEDS: INSULIN LISPRO 100 UNITS/ML SUBCUT SCH ×4 (08:00→21:00)
[2019-03-07] MEDS: ASPIRIN 81MG EC TABLET PO SCH (09:23)
[2019-03-07 09:43] LABS: PLATELET ESTIMATE INCREASED
[2019-03-07 12:00] VITALS: BP 96/57
[2019-03-07] MEDS: NYSTATIN POWDER 15GM TOP SCH ×3 (13:13→18:41)
[2019-03-07] MEDS: SODIUM CHLORIDE 0.45% 1,000 ML IV SCH (14:16)
[2019-03-07 16:00] VITALS: BP 97/57
[2019-03-07] MEDS: ENOXAPARIN 40MG/0.4ML SYR SUBCUT SCH (18:40)
[2019-03-07] MEDS: LEVOFLOXACIN 500MG PREMIX 100 ML IV SCH (18:41)
[2019-03-07 20:00] VITALS: BP 103/58
[2019-03-08] VITALS: BP 90/48
[2019-03-08] MEDS: MORPHINE SULFATE 2 MG/ML CPJ (NOT FOR IM USE) IV PRN ×3 (03:12→14:54)
[2019-03-08 07:11] VITALS: BP 90/48
[2019-03-08] MEDS: BLOOD SUGAR DIAGNOSTIC STRIP TEST SCH ×2 (08:24→11:41)
[2019-03-08] MEDS: NYSTATIN POWDER 15GM TOP SCH ×2 (08:36→12:59)
[2019-03-08] MEDS: ASPIRIN 81MG EC TABLET PO SCH (08:37)
[2019-03-08] MEDS: INSULIN LISPRO 100 UNITS/ML SUBCUT SCH ×2 (08:38→12:59)
[2019-03-08] MEDS: HYDROCODONE/ACETAMINOPHEN 5/325MG TABLET PO PRN (08:43)
[2019-03-08] MEDS ORDERED: ZINC SULFATE 220 MG ( 50 ) CAPSULE PO SCH (09:00)
[2019-03-08] MEDS ORDERED: ASCORBIC ACID 500 MG TABLET PO SCH (09:00)
[2019-03-08] MEDS: SODIUM CHLORIDE 0.45% 1,000 ML IV SCH (10:21)
[2019-03-08 12:00] VITALS: BP 99/55
[2019-03-08] MEDS ORDERED: SODIUM CHLORIDE 0.9% 1,000 ML IV SCH (12:00)
[2019-03-08 12:52] VITALS: BP 99/55
[2019-03-08 14:54] VITALS: BP 99/55
[2019-03-09] MEDS ORDERED: LEVOFLOXACIN 500MG TABLET PO SCH (11:00)
== END 2019-03-08 17:05 | DRG 205 ==
LOC: ER 04:23 → 7WST 05:23 → EDBEDREQTM 06:03 → EDBEDREQ 06:03 → ENRESERV 16:02
PROVIDERS: ADMIT Internal Medicine; ATTEND Internal Medicine
DX: M94.0 Chondrocostal junction syndrome [Tietze] (principal); E43 Unspecified severe protein-calorie malnutrition; C15.9 Malignant neoplasm of esophagus, unspecified; K94.13 Enterostomy malfunction; E46 Unspecified protein-calorie malnutrition; E03.9 Hypothyroidism, unspecified; E11.9 Type 2 diabetes mellitus without complications; F03.90 Unspecified dementia, unspecified severity, without behavioral disturbance, psychotic disturbance, mood disturbance, and anxiety; I11.0 Hypertensive heart disease with heart failure; I25.10 Atherosclerotic heart disease of native coronary artery without angina pectoris; I50.9 Heart failure, unspecified; Y83.8 Other surgical procedures as the cause of abnormal reaction of the patient, or of later complication, without mention of misadventure at the time of the procedure; Y73.8 Miscellaneous gastroenterology and urology devices associated with adverse incidents, not elsewhere classified; J44.9 Chronic obstructive pulmonary disease, unspecified; Z79.84 Long term (current) use of oral hypoglycemic drugs; Z79.899 Other long term (current) drug therapy; Z86.718 Personal history of other venous thrombosis and embolism; Z95.828 Presence of other vascular implants and grafts; Z68.22 Body mass index [BMI] 22.0-22.9, adult
CPT/HCPCS: 36415; 71045; 71275; 80048; 80053; 80061; 82550; 82553; 82962; 83036; 83880; 84134; 84439; 84443; 84484; 85025; 85379; 93005; 93306; 96374; 99285; J1650; J1815; J1956; J2060; J2270; J2405; J7030; Q9967

== ENCOUNTER 2019-03-09 05:28 | Inpatient (IN) | payer MEDICARE, MEDICAID ==
[~2019-03-09] VITALS: Ht 162.6 cm; Wt 57.6 kg
[2019-03-09] MEDS ORDERED: ONDANSETRON HCL 4MG/2ML INJ IV ONE (06:30)
[2019-03-09] MEDS ORDERED: FAMOTIDINE 20MG/2ML VIAL IV ONE (06:30)
[2019-03-09] MEDS ORDERED: SODIUM CHLORIDE 0.9% 1,000 ML IV ONE (06:30)
[2019-03-09] MEDS ORDERED: MORPHINE SULFATE 4 MG/ML CPJ (NOT FOR IM USE) IV ONE (07:00)
[2019-03-09 07:03] LABS: BASOPHILS % 0.6 % (0.0-2.0); HEMATOCRIT. 22.9 % (36.0-48.0); HEMOGLOBIN. 7.4 g/dL (12.0-16.0); LYMPHOCYTES % 9.5 % (20.0-50.0); MEAN CORPUSCULAR HEMOGLOBIN 26.2 pg (28.0-32.0); MEAN CORPUSCULAR VOLUME 81.1 fL (81.0-99.0); MEAN PLATELET VOLUME 8.2 fl (7.4-10.4); MONOCYTES % 4.9 % (2.0-8.0); PLATELET 576 x1000/uL (130-400); RED BLOOD CELL COUNT 2.82 mill/uL (4.2-5.4); RED CELL DISTRIBUTION WIDTH 15.3 % (11.6-14.6)
[2019-03-09 07:06] LABS: CHLORIDE 101 mEq/L (98-107)
[2019-03-09 07:21] LABS: PROTHROMBIN TIME 10.1 sec (9.6-11.0)
[2019-03-09 08:48] LABS: CLARITY URINE CLEAR (CLEAR); COLOR URINE YELLOW (YELLOW); KETONES URINE 1+ (NEGATIVE); LEUKOCYTE ESTERASE URINE TRACE (NEGATIVE); NITRITE URINE NEGATIVE (NEGATIVE); OCCULT BLOOD URINE NEGATIVE (NEGATIVE); PROTEIN URINE TRACE (NEGATIVE); SPECIFIC GRAVITY URINE 1.033 (1.005-1.030)
[2019-03-09] MEDS ORDERED: SODIUM CHLORIDE 0.45% 1,000 ML IV SCH (09:46)
[2019-03-09] MEDS ORDERED: ONDANSETRON HCL 4MG/2ML INJ IV PRN (10:00)
[2019-03-09] MEDS ORDERED: LORAZEPAM 2MG/ML CPJ IV PRN (10:00)
[2019-03-09] MEDS ORDERED: MAGNESIUM/ALUMINUM HYDROXIDE/SIMETHICONE 30ML UDC PO PRN (10:00)
[2019-03-09] MEDS ORDERED: IPRATROPIUM/ALBUTEROL 0.5-3(2.5)MG/3ML NEB NEB PRN (10:00)
[2019-03-09] MEDS ORDERED: GUAIFENESIN 200MG/10ML SUGAR FREE UDC PO PRN (10:00)
[2019-03-09] MEDS ORDERED: DIPHENHYDRAMINE 50MG/ML VIAL IV PRN (10:00)
[2019-03-09] MEDS ORDERED: NA PHOS,M-B/NA PHOS,DI-BA ENEMA 118ML PR PRN (10:00)
[2019-03-09] MEDS ORDERED: DOCUSATE SODIUM 100MG CAPSULE PO PRN (10:00)
[2019-03-09] MEDS ORDERED: CLONIDINE 0.1MG TABLET PO PRN (10:00)
[2019-03-09 15:25] LABS: CHLORIDE 107 mEq/L (98-107)
[2019-03-09 20:00] VITALS: BP 114/25
[2019-03-09] MEDS: FERROUS SULFATE 300MG/5ML UDC PO SCH (20:47)
[2019-03-09] MEDS: MORPHINE SULFATE 2 MG/ML CPJ (NOT FOR IM USE) IV PRN (21:07)
[2019-03-09] MEDS: SODIUM CHLORIDE 0.9% 1,000 ML IV SCH (22:38)
[2019-03-09 23:24] LABS: HEMOGLOBIN 6.1 g/dL (12.0-16.0)
[2019-03-09 23:44] VITALS: BP 146/68
[2019-03-10] MEDS ORDERED: DEXTROSE 50% WATER 50ML SYRINGE IV PRN
[2019-03-10] MEDS: MORPHINE SULFATE 2 MG/ML CPJ (NOT FOR IM USE) IV PRN ×2 (05:48→19:45)
[2019-03-10] MEDS: BLOOD SUGAR DIAGNOSTIC STRIP TEST SCH ×4 (06:58→20:08)
[2019-03-10] MEDS: SODIUM CHLORIDE 0.9% 1,000 ML IV SCH ×2 (07:07→17:52)
[2019-03-10] MEDS: INSULIN LISPRO 100 UNITS/ML SUBCUT SCH ×4 (07:50→20:08)
[2019-03-10 08:00] VITALS: BP 84/47
[2019-03-10] MEDS ORDERED: ZINC1CAP2 GT (08:00)
[2019-03-10] MEDS ORDERED: DOCU-138 GT (08:00)
[2019-03-10] MEDS ORDERED: ASCO-339 GT (08:00)
[2019-03-10] MEDS ORDERED: LOV40 SQ (08:00)
[2019-03-10] MEDS ORDERED: ASPI-1497 GT (08:00)
[2019-03-10] MEDS: FERROUS SULFATE 300MG/5ML UDC PO SCH ×3 (08:32→17:51)
[2019-03-10 08:55] LABS: BASOPHILS % 0.4 % (0.0-2.0); EOSINOPHILS % 0.1 % (0.0-5.0); LYMPHOCYTES % 23.7 % (20.0-50.0); MEAN CORPUSCULAR HEMOGLOBIN 27.2 pg (28.0-32.0); MEAN CORPUSCULAR VOLUME 81.3 fL (81.0-99.0); MEAN PLATELET VOLUME 8.1 fl (7.4-10.4); MONOCYTES % 5.7 % (2.0-8.0); NEUTROPHILS % 70.1 % (40.0-76.0); PLATELET 326 x1000/uL (130-400); RED BLOOD CELL COUNT 2.08 mill/uL (4.2-5.4); RED CELL DISTRIBUTION WIDTH 15.4 % (11.6-14.6)
[2019-03-10 09:00] LABS: HEMATOCRIT. 16.9 % (36.0-48.0); HEMOGLOBIN. 5.7 g/dL (12.0-16.0)
[2019-03-10 09:29] LABS: CHLORIDE 110 mEq/L (98-107)
[2019-03-10 09:41] LABS: LDL CHOLESTEROL 43 mg/dL (5-100)
[2019-03-10 09:42] LABS: HDL CHOLESTEROL 52 mg/dL (40-59); T4 FREE 1.15 ng/dL (0.76-1.46)
[2019-03-10] MEDS ORDERED: SODIUM CHLORIDE 0.9% 500 ML IV ONE (11:15)
[2019-03-10] MEDS: PANTOPRAZOLE SODIUM 40 MG/VIAL IV SCH ×2 (11:44→20:05)
[2019-03-10 12:19] VITALS: BP 136/22
[2019-03-10] MEDS: ACETAMINOPHEN 325MG TABLET PO PRN (14:28)
[2019-03-10 16:00] VITALS: BP 132/67
[2019-03-10 19:09] LABS: HEMATOCRIT 17.2 % (36.0-48.0); HEMOGLOBIN 5.5 g/dL (12.0-16.0)
[2019-03-10 19:12] LABS: TOTAL IRON BINDING CAPACITY 280 ug/dL (250-450)
[2019-03-10 20:16] VITALS: BP 115/58
[2019-03-10 20:38] LABS: FOLIC ACID (FOLATE) SERUM 4.2 ng/mL (>5.38)
[2019-03-10] MEDS: HYDROCODONE/ACETAMINOPHEN 10/325MG TABLET PO PRN (21:09)
[2019-03-10] MEDS ORDERED: IRON SUCROSE COMPLEX 100 MG/5 ML ML IV NR (23:00)
[2019-03-11] VITALS (8 sets, daily range): BP systolic 81–118; BP diastolic 45–62
[2019-03-11] MEDS: MORPHINE SULFATE 2 MG/ML CPJ (NOT FOR IM USE) IV PRN (00:45)
[2019-03-11] MEDS: SODIUM CHLORIDE 0.9% 1,000 ML IV SCH ×3 (03:28→23:47)
[2019-03-11] MEDS: BLOOD SUGAR DIAGNOSTIC STRIP TEST SCH ×4 (06:34→21:10)
[2019-03-11] MEDS: INSULIN LISPRO 100 UNITS/ML SUBCUT SCH ×4 (06:50→21:00)
[2019-03-11 07:18] LABS: INR 1.1; PARTIAL THROMBOPLASTIN TIME 27.4 sec (23.4-31.0); PROTHROMBIN TIME 10.9 sec (9.6-11.0)
[2019-03-11 07:21] LABS: BASOPHILS % 0.3 % (0.0-2.0); EOSINOPHILS % 0.1 % (0.0-5.0); LYMPHOCYTES % 19.8 % (20.0-50.0); MEAN CORPUSCULAR HEMOGLOBIN 26.4 pg (28.0-32.0); MEAN CORPUSCULAR VOLUME 82.1 fL (81.0-99.0); MEAN PLATELET VOLUME 7.9 fl (7.4-10.4); MONOCYTES % 7.9 % (2.0-8.0); NEUTROPHILS % 71.9 % (40.0-76.0); PLATELET 365 x1000/uL (130-400); RED BLOOD CELL COUNT 2.27 mill/uL (4.2-5.4); RED CELL DISTRIBUTION WIDTH 15.6 % (11.6-14.6)
[2019-03-11 07:30] LABS: CHLORIDE 113 mEq/L (98-107)
[2019-03-11 08:09] LABS: HEMATOCRIT. 18.6 % (36.0-48.0)
[2019-03-11] MEDS ORDERED: SIMETHICONE 40 MG/0.6 ML 30ML ONE (09:52)
[2019-03-11] MEDS: PANTOPRAZOLE SODIUM 40 MG/VIAL IV SCH ×2 (10:20→21:20)
[2019-03-11] MEDS ORDERED: MIDAZOLAM HCL 5 MG/5 ML VIAL ONE (11:19)
[2019-03-11] MEDS ORDERED: MIDAZOLAM HCL 2 MG/2 ML VIAL IV PRN (11:20)
[2019-03-11] MEDS: NYSTATIN POWDER 15GM TOP SCH (21:20)
[2019-03-12] VITALS (7 sets, daily range): BP systolic 93–133; BP diastolic 44–70
[2019-03-12] MEDS: HYDROCODONE/ACETAMINOPHEN 10/325MG TABLET PO PRN ×2 (03:48→11:56)
[2019-03-12] MEDS: NYSTATIN POWDER 15GM TOP SCH ×3 (06:06→15:20)
[2019-03-12] MEDS: BLOOD SUGAR DIAGNOSTIC STRIP TEST SCH ×4 (06:36→21:00)
[2019-03-12] MEDS: INSULIN LISPRO 100 UNITS/ML SUBCUT SCH ×4 (07:00→21:00)
[2019-03-12] MEDS: FERROUS SULFATE 300MG/5ML UDC PO SCH ×3 (10:03→18:30)
[2019-03-12] MEDS: PANTOPRAZOLE SODIUM 40 MG/VIAL IV SCH ×2 (10:03→22:29)
[2019-03-12] MEDS: SODIUM CHLORIDE 0.9% 1,000 ML IV SCH ×2 (10:04→18:30)
[2019-03-12] MEDS: MORPHINE SULFATE 2 MG/ML CPJ (NOT FOR IM USE) IV PRN (22:50)
[2019-03-13 00:40] VITALS: BP 101/52
[2019-03-13 04:00] VITALS: BP 92/50
[2019-03-13] MEDS: NYSTATIN POWDER 15GM TOP SCH ×2 (05:44→13:49)
[2019-03-13] MEDS: SODIUM CHLORIDE 0.9% 1,000 ML IV SCH ×2 (05:52→14:55)
[2019-03-13] MEDS: INSULIN LISPRO 100 UNITS/ML SUBCUT SCH ×4 (06:35→20:53)
[2019-03-13] MEDS: BLOOD SUGAR DIAGNOSTIC STRIP TEST SCH ×4 (06:35→20:53)
[2019-03-13] MEDS: FERROUS SULFATE 300MG/5ML UDC PO SCH ×3 (07:43→17:19)
[2019-03-13 08:00] VITALS: BP 98/53
[2019-03-13] MEDS: PANTOPRAZOLE SODIUM 40 MG/VIAL IV SCH ×2 (08:01→23:17)
[2019-03-13] MEDS: MORPHINE SULFATE 2 MG/ML CPJ (NOT FOR IM USE) IV PRN ×2 (11:22→23:12)
[2019-03-13 12:00] VITALS: BP 103/64
[2019-03-13] MEDS ORDERED: BACTERIOSTATIC SODIUM CHLORIDE 0.9% 30ML VIAL IJ ONE (14:39)
[2019-03-13] MEDS ORDERED: MIDAZOLAM HCL 5 MG/5 ML VIAL ONE (14:49)
[2019-03-13] MEDS ORDERED: FENTANYL CITRATE/PF 50MCG/ML 2ML VIAL ONE (14:50)
[2019-03-13] MEDS ORDERED: FENTANYL CITRATE/PF 50MCG/ML 2ML VIAL IV ONE (14:50)
[2019-03-13] MEDS ORDERED: DIPHENHYDRAMINE 50MG/ML VIAL IV ONE (14:50)
[2019-03-13] MEDS ORDERED: DIPHENHYDRAMINE 50MG/ML VIAL ONE ×2 (14:51→15:33)
[2019-03-13] MEDS ORDERED: MIDAZOLAM HCL 2 MG/2 ML VIAL IV ONE (14:55)
[2019-03-13] MEDS ORDERED: FENTANYL CITRATE/PF 50MCG/ML 2ML VIAL IV NR (17:00)
[2019-03-13] MEDS ORDERED: MIDAZOLAM HCL 5 MG/5 ML VIAL IV NR (17:00)
[2019-03-13 17:34] VITALS: BP 113/62
[2019-03-13 20:00] VITALS: BP 109/63
[2019-03-14] VITALS: BP 99/52
[2019-03-14] MEDS: NYSTATIN POWDER 15GM TOP SCH ×3 (00:21→15:27)
[2019-03-14] MEDS: SODIUM CHLORIDE 0.9% 1,000 ML IV SCH ×3 (00:25→21:30)
[2019-03-14 04:00] VITALS: BP 104/72
[2019-03-14] MEDS: MORPHINE SULFATE 2 MG/ML CPJ (NOT FOR IM USE) IV PRN ×2 (04:28→21:08)
[2019-03-14] MEDS: BLOOD SUGAR DIAGNOSTIC STRIP TEST SCH ×4 (05:55→21:30)
[2019-03-14] MEDS: INSULIN LISPRO 100 UNITS/ML SUBCUT SCH ×4 (06:07→21:00)
[2019-03-14 08:22] VITALS: BP 93/53
[2019-03-14 08:22] LABS: BASOPHILS % 0.4 % (0.0-2.0); EOSINOPHILS % 0.7 % (0.0-5.0); HEMATOCRIT. 22.5 % (36.0-48.0); MEAN CORPUSCULAR HEMOGLOBIN 25.5 pg (28.0-32.0); MEAN CORPUSCULAR VOLUME 82.6 fL (81.0-99.0); MEAN PLATELET VOLUME 7.7 fl (7.4-10.4); MONOCYTES % 7.2 % (2.0-8.0); NEUTROPHILS % 56.7 % (40.0-76.0); PLATELET 397 x1000/uL (130-400); RED BLOOD CELL COUNT 2.72 mill/uL (4.2-5.4); RED CELL DISTRIBUTION WIDTH 16.8 % (11.6-14.6)
[2019-03-14 08:42] LABS: CHLORIDE 114 mEq/L (98-107)
[2019-03-14 09:57] LABS: HEMOGLOBIN. 6.9 g/dL (12.0-16.0)
[2019-03-14] MEDS: FERROUS SULFATE 300MG/5ML UDC PO SCH ×3 (10:00→19:54)
[2019-03-14] MEDS: PANTOPRAZOLE SODIUM 40 MG/VIAL IV SCH ×2 (10:00→21:11)
[2019-03-14] MEDS: ACETAMINOPHEN 325MG TABLET PO PRN (11:50)
[2019-03-14 12:34] VITALS: BP 105/49
[2019-03-14] MEDS ORDERED: LORAZEPAM 0.5MG TABLET PO NR (14:45)
[2019-03-14] MEDS ORDERED: LORAZEPAM 0.5MG TABLET PO PRN (15:00)
[2019-03-14] MEDS: HYDROCODONE/ACETAMINOPHEN 10/325MG TABLET PO PRN (15:21)
[2019-03-14 15:54] VITALS: BP 106/54
[2019-03-14 20:15] VITALS: BP 103/58
[2019-03-15] VITALS: BP 109/61
[2019-03-15] MEDS: NYSTATIN POWDER 15GM TOP SCH ×4 (00:57→21:11)
[2019-03-15] MEDS: MORPHINE SULFATE 2 MG/ML CPJ (NOT FOR IM USE) IV PRN ×2 (01:07→17:57)
[2019-03-15 04:00] VITALS: BP 95/55
[2019-03-15] MEDS: SODIUM CHLORIDE 0.9% 1,000 ML IV SCH ×2 (07:15→17:15)
[2019-03-15] MEDS: INSULIN LISPRO 100 UNITS/ML SUBCUT SCH ×4 (07:50→20:10)
[2019-03-15] MEDS: FERROUS SULFATE 300MG/5ML UDC PO SCH ×3 (07:50→17:50)
[2019-03-15] MEDS: BLOOD SUGAR DIAGNOSTIC STRIP TEST SCH ×4 (07:58→20:08)
[2019-03-15 08:00] VITALS: BP 112/46
[2019-03-15] MEDS: PANTOPRAZOLE SODIUM 40 MG/VIAL IV SCH ×2 (09:00→20:09)
[2019-03-15] MEDS: HYDROCODONE/ACETAMINOPHEN 10/325MG TABLET PO PRN ×2 (09:06→15:40)
[2019-03-15] MEDS ORDERED: LORAZEPAM 0.5MG TABLET PO PRN ×2 (10:30→17:40)
[2019-03-15 12:00] VITALS: BP 106/58
[2019-03-15 16:00] VITALS: BP 111/60
[2019-03-15] MEDS ORDERED: IBUPROFEN 600MG TABLET PO PRN (17:30)
[2019-03-15 20:56] VITALS: BP 90/53
[2019-03-16] VITALS: BP 102/54
[2019-03-16] MEDS: SODIUM CHLORIDE 0.9% 1,000 ML IV SCH (02:19)
[2019-03-16 02:39] VITALS: BP 96/43
[2019-03-16 03:58] VITALS: BP 105/44
[2019-03-16 04:50] VITALS: BP 93/50
[2019-03-16] MEDS: NYSTATIN POWDER 15GM TOP SCH ×2 (05:31→14:00)
[2019-03-16] MEDS: BLOOD SUGAR DIAGNOSTIC STRIP TEST SCH ×2 (06:29→12:20)
[2019-03-16] MEDS: INSULIN LISPRO 100 UNITS/ML SUBCUT SCH ×2 (07:50→12:50)
[2019-03-16] MEDS: PANTOPRAZOLE SODIUM 40 MG/VIAL IV SCH (09:24)
[2019-03-16] MEDS: FERROUS SULFATE 300MG/5ML UDC PO SCH ×2 (09:24→12:50)
[2019-03-16 12:00] VITALS: BP 96/51
[2019-03-16 13:41] VITALS: BP 96/51
== END 2019-03-16 16:15 | disposition home or self-care (01) | DRG 393 ==
LOC: ER 05:28 → 6WST 08:56 → ENRESERV 17:26
PROVIDERS: ADMIT Internal Medicine; ATTEND Internal Medicine
PROC: 0D20XUZ Change Feeding Device in Upper Intestinal Tract, External Approach (ICD-10-PCS; principal; 2019-03-10)
PROC: 0DJ08ZZ Inspection of Upper Intestinal Tract, Via Natural or Artificial Opening Endoscopic (ICD-10-PCS; 2019-03-10)
PROC: 0DHA8UZ Insertion of Feeding Device into Jejunum, Via Natural or Artificial Opening Endoscopic (ICD-10-PCS; 2019-03-13)
DX: K94.23 Gastrostomy malfunction (principal); K22.11 Ulcer of esophagus with bleeding; E44.0 Moderate protein-calorie malnutrition; E11.9 Type 2 diabetes mellitus without complications; E03.9 Hypothyroidism, unspecified; E86.0 Dehydration; J44.9 Chronic obstructive pulmonary disease, unspecified; K44.9 Diaphragmatic hernia without obstruction or gangrene; Z85.01 Personal history of malignant neoplasm of esophagus; L89.159 Pressure ulcer of sacral region, unspecified stage; Y83.8 Other surgical procedures as the cause of abnormal reaction of the patient, or of later complication, without mention of misadventure at the time of the procedure; D64.9 Anemia, unspecified; I11.0 Hypertensive heart disease with heart failure; I50.9 Heart failure, unspecified; F03.90 Unspecified dementia, unspecified severity, without behavioral disturbance, psychotic disturbance, mood disturbance, and anxiety; Z53.1 Procedure and treatment not carried out because of patient's decision for reasons of belief and group pressure; Z79.84 Long term (current) use of oral hypoglycemic drugs; Z79.899 Other long term (current) drug therapy; Z86.718 Personal history of other venous thrombosis and embolism; Z68.21 Body mass index [BMI] 21.0-21.9, adult; Y92.89 Other specified places as the place of occurrence of the external cause
CPT/HCPCS: 36415; 74018; 80048; 80053; 80061; 81003; 82607; 82728; 82746; 82962; 83540; 83550; 84134; 84439; 84443; 84484; 85014; 85018; 85025; 92610; 93005; 99285; A6261; C1893; C9113; J1200; J2250; J2270; J2405; J3010; J3490; J7030; J7040; A4315